=== PATIENT | female | born 1960 | race Two or more races ===

== ENCOUNTER → 2019-04-12 | Emergency (ER) | payer OTHER ==
[~2019-04-12] VITALS: Ht 167.6 cm; Wt 77.1 kg
[~2019-04-12] MED LIST: ALPRAZolam 0.5 MG TAB PO ONE; LORazepam 0.5 MG TAB PO ONE; OLANZapine 5 MG TAB PO ONE; SODIUM CHLORIDE 0.9% 1,000 ML IV ONE
[2019-04-12 08:01] LABS: Albumin 3.7 g/dL (3.4-5.0); BUN/Creatinine Ratio 12.7; Calcium 8.8 mg/dL (8.5-10.1); Magnesium 2.2 mg/dL (1.6-2.6); Potassium 3.7 mmol/L (3.5-5.1)
[2019-04-12 08:02] LABS: Total Protein 7.6 g/dL (6.4-8.2)
[2019-04-12 08:08] LABS: Basophils # (auto) 0 10 ^3/uL (0-0.2); Basophils % (auto) 0.7 % (0.0-2.0); Eosinophils # (auto) 0 10 ^3/uL (0-0.8); Eosinophils % (auto) 0.3 % (0.0-7.0); Hematocrit 40.1 % (36.0-46.0); Hemoglobin 13.6 g/dL (12.2-16.2); Lymphocytes # (auto) 2.1 10 ^3/uL (0.4-5.4); Lymphocytes % (auto) 34.4 % (10.0-50.0); Mean Corpuscular Hemoglobin 32.3 pg (28.0-32.0); Mean Corpuscular Hgb Conc. 33.9 g/dL (32.0-36.0); Mean Corpuscular Volume 95.4 fL (80.0-100.0); Monocytes # (auto) 0.3 10 ^3/uL (0-1.3); Monocytes % (auto) 4.9 % (0.0-12.0); Neutrophils # (auto) 3.7 10 ^3/uL (1.6-8.6); Neutrophils % (auto) 59.7 % (37.0-80.0); Nucleated Red Blood Cells % 0.1 %; Platelet Count (auto) 173 10^3/uL (140-450); Red Cell Distribution Width 16.5 % (11.8-14.3); White Blood Cell 6.2 10^3/uL (4.4-10.8)
[2019-04-12 08:10] LABS: Bilirubin, Total 0.5 mg/dL (0.2-1.0)
[2019-04-12 09:31] LABS: Urine Bacteria NONE SEEN /hpf (None Seen); Urine Blood Negative /uL (Negative); Urine Specific Gravity 1.003 (1.001-1.035); Urine WBC <1 /hpf (0 - 5)
[2019-04-12 09:48] LABS: Amphetamine Screen, Urine NEGATIVE (NEGATIVE); Barbiturate Scree,Urine NEGATIVE (NEGATIVE); Benzodiazephine Screen, Urine NEGATIVE (NEGATIVE); Cannabinoid Screen, Urine NEGATIVE (NEGATIVE); Cocaine Screen, Urine NEGATIVE (NEGATIVE)
[2019-04-12 09:50] LABS: Opiate Scree,Urine NEGATIVE (NEGATIVE); Phencyclidine Screen, Urine NEGATIVE (NEGATIVE)
[2019-04-12 12:07] VITALS: BP 152/90
--- NOTE | 2019-04-12 17:12 | NUR ---
Received Social Service consult to see pt as she is homeless. However that was not the issue. Pt had a panic attack in a gas station and called EMS. They brought pt to the hospital. Her vehicle was left unlocked in the parking lot of the [employer]. She wanted to find out the location of her car. [employer] called gas station and the car was no longer there. Pt called [employer] office and they had no record of the car being towed. She spoke with [facility] and they told her they could not give her any information regarding where the pt was picked up. So pt called her son and mother to drive up her to [facility] to [facility] her up and try to locate her car.
== END | disposition home or self-care (01) ==
LOC: ER 05:56 → EDBD 05:56
DX: F32.9 Major depressive disorder, single episode, unspecified (principal); F41.9 Anxiety disorder, unspecified; F10.229 Alcohol dependence with intoxication, unspecified; M06.9 Rheumatoid arthritis, unspecified; Z59.0 Homelessness; E78.5 Hyperlipidemia, unspecified; I10 Essential (primary) hypertension; F17.210 Nicotine dependence, cigarettes, uncomplicated; Y90.7 Blood alcohol level of 200-239 mg/100 ml
CPT/HCPCS: 36415; 71046; 80053; 80307; 80320; 81001; 83735; 84443; 85025